=== PATIENT | male | born 1980 | race Caucasian/White ===

== ENCOUNTER 2017-03-16 16:36 | Emergency (ER) | payer OTHER ==
--- NOTE | 2017-03-20 12:53 | NUR ---
Received referral from ED stating pt unable to afford insulin. Attempted to contact pt. No answer, voice mail is not set up.
--- NOTE | 2017-03-21 13:45 | NUR ---
Attempted to contact pt several times. No answer, voice mail is not set up.
--- NOTE | 2017-03-31 15:51 | ER ---
ADMIT: 03/16/2017 RM/LOC: ER [facility] MR#: [id number] [address] [id number] MADELYNM[address]HAEL [address] [place] [address] *[facility] Emergency Room Report SEX: M AGE: 36 : 1980 DATE: 03/16/2017 This is a 36-year-old diabetic who states he is not able to afford his insulin or his diabetic medication, comes in with chronic leg pain. See T-sheet for history and physical. His hemoglobin A1c was 10.3, BUN and creatinine were within normal parameters. The patient was diagnosed with diabetic neuropathy, given a prescription for Neurontin and Seadrift. Instructed to follow up with primary care physician this week and a diabetic education. Efren Pérez MD/ skyler JOB #: [id number] CC: Clint Almendarez MD, Attending Physician
== END 2017-03-16 17:40 | disposition home or self-care (01) ==
LOC: ER 16:36
DX: E11.40 Type 2 diabetes mellitus with diabetic neuropathy, unspecified (principal); R20.2 Paresthesia of skin; Z88.7 Allergy status to serum and vaccine; Z79.4 Long term (current) use of insulin; Z88.0 Allergy status to penicillin; Z88.2 Allergy status to sulfonamides